=== PATIENT | male | born 1955 | race Caucasian/White ===

== ENCOUNTER → 2023-12-19 09:37 | Outpatient (REF) | payer MEDICARE, OTHER, SELFPAY | LOC: RAD 09:37 | PROVIDERS: ATTENDING PHYSICIAN Nurse Practitioner Family; FAMILY PHYSICIAN Internal Medicine | DX: M25.511 Pain in right shoulder (principal) | CPT/HCPCS: 73030 ==

== ENCOUNTER → 2024-02-07 06:36 | Outpatient (REF) | payer MEDICARE, OTHER, SELFPAY | LOC: MRI 3T 06:36 | PROVIDERS: ATTENDING PHYSICIAN Internal Medicine | DX: M25.511 Pain in right shoulder (principal) | CPT/HCPCS: 73221 ==

== ENCOUNTER → 2024-03-14 08:57 | Outpatient (REF) | payer MEDICARE, OTHER, SELFPAY ==
[2024-03-14 09:38] LABS: % Basophils 0.7 % (0-2); % Eosinophils 1.7 % (0-6); % Immature Granulocytes 0.2 % (0-0.5); % Lymphocytes 32.7 % (20.5-51.1); % Neutrophils 50.7 % (42.2-75.2); Absolute Eosinophils 0.1 10^3/uL (0-0.7); Absolute Lymphocytes 1.8 10^3/uL (1.2-3.4); Absolute Monocytes 0.8 10^3/uL (0.1-0.6); Absolute Neutrophils 2.7 10^3/uL (1.4-6.5); Hematocrit 42.1 % (39.0-52.0); Hemoglobin 14.5 g/dL (13.0-18.0); Mean Corp Hgb Conc. 34.4 g/dL (33.0-37.0); Mean Corpuscular Hgb 30.4 pg (27.0-31.0); Mean Corpuscular Volume 88.3 fL (80.0-94.0); Mean Platelet Volume 9.5 fL (7.4-10.4); Nucleated Red Blood Cells % 0 % (-); Platelet Count 179 10^3/uL (130-400); Red Blood Cell Count 4.77 10^6/uL (4.70-6.10); Red Cell Dist. Width 13.2 % (11.5-14.5); White Blood Cell Count 5.4 10^3/uL (4.8-10.8)
[2024-03-14 09:50] LABS: Urine Albumin Negative (Neg - Trace); Urine Bilirubin Negative (Negative); Urine Character Clear (Clear); Urine Color Yellow; Urine Glucose Negative (Negative); Urine Ketone Negative (Negative); Urine Leukocyte Negative (Negative); Urine Nitrite Negative (Negative); Urine Occult Blood 1+ (Negative); Urine Specific Gravity 1.025 (<1.030); Urine Urobilinogen Negative (Neg - 1+)
[2024-03-14 10:29] LABS: Blood Urea Nitrogen 20 mg/dl (9-20); Glucose 96 mg/dl (70-99)
[2024-03-14 10:30] LABS: ALT (SGPT) 19 U/L (0-50); AST (SGOT) 27 U/L (17-59); Alkaline Phosphatase 55 U/L (38-126); Carbon Dioxide 30 mmol/L (22-30); Chloride 101 mmol/L (98-107); HDL Cholesterol 49 mg/dl; LDL Cholesterol, Calculated 58 mg/dl; Potassium 4.2 mmol/L (3.5-5.1); Sodium 141 mmol/L (135-145); Total Bilirubin 0.4 mg/dl (0.2-1.3); Total Cholesterol 126 mg/dl (50-199); Triglyceride 95 mg/dl (10-149); Very Low Density Lipoprotein 19 mg/dl (0-30); eGFR > 60.00
[2024-03-14 10:39] LABS: Urine Mucus Few
[2024-03-14 10:40] LABS: Urine Amorphous Seen; Urine White Cell 0-2 /HPF (0-5)
[2024-03-14 10:56] LABS: PSA, Total - Screen 0.87 ng/ml (0.0-4.0)
== END ==
LOC: REG 08:57
PROVIDERS: ATTENDING PHYSICIAN Internal Medicine
DX: Z00.00 Encounter for general adult medical examination without abnormal findings (principal); Z79.899 Other long term (current) drug therapy; R82.90 Unspecified abnormal findings in urine; E78.2 Mixed hyperlipidemia; R79.89 Other specified abnormal findings of blood chemistry; Z12.5 Encounter for screening for malignant neoplasm of prostate; I10 Essential (primary) hypertension; D72.821 Monocytosis (symptomatic)
CPT/HCPCS: 36415; 80053; 80061; 81003; 81015; 82306; 85025; G0103

== ENCOUNTER → 2024-04-03 12:38 | Outpatient (REF) | payer MEDICARE, OTHER, SELFPAY ==
--- NOTE | 2024-04-03 13:52 | CARDSERVDEF ---
Echocardiogram with Definity completed after protocol screening completed. Allergies verified.
here for definity enhanced stress echo
Patent IV site: new start 22P RAC
IV site flushed with 0.9% NaCl pre and post administration.
Diluted bolus method utilized to enhance visualization of ventricular bridges.
Total volume given: __5.0__ ml in divided doses
Patient tolerated all procedures well without complications.
site removed at completion of test.
== END ==
LOC: RCS 12:38
PROVIDERS: ATTENDING PHYSICIAN Internal Medicine
DX: R06.09 Other forms of dyspnea (principal); R07.2 Precordial pain
CPT/HCPCS: 93017; 93005; 93350; Q9957

== ENCOUNTER → 2024-05-15 07:25 | Outpatient (REF) | payer MEDICARE, OTHER, SELFPAY ==
[2024-05-15 08:47] LABS: Hematocrit 42.1 % (39.0-52.0); Hemoglobin 14.2 g/dL (13.0-18.0); Mean Corp Hgb Conc. 33.7 g/dL (33.0-37.0); Mean Corpuscular Hgb 30.3 pg (27.0-31.0); Mean Corpuscular Volume 89.8 fL (80.0-94.0); Platelet Count 187 10^3/uL (130-400); Red Blood Cell Count 4.69 10^6/uL (4.70-6.10); Red Cell Dist. Width 12.7 % (11.5-14.5); White Blood Cell Count 4.6 10^3/uL (4.8-10.8)
[2024-05-15 10:36] LABS: Blood Urea Nitrogen 18 mg/dl (9-20); Calcium 8.8 mg/dl (8.4-10.2); Carbon Dioxide 30 mmol/L (22-30); Chloride 103 mmol/L (98-107); Glucose 93 mg/dl (70-99); Potassium 4.2 mmol/L (3.5-5.1); Sodium 141 mmol/L (135-145); eGFR > 60.00
== END ==
LOC: SDSPAT 07:25
PROVIDERS: ATTENDING PHYSICIAN Specialist; FAMILY PHYSICIAN Internal Medicine
DX: Z01.818 Encounter for other preprocedural examination (principal)
CPT/HCPCS: 36415; 80048; 85027

== ENCOUNTER 2024-06-05 06:20 | Day surgery (SDC) | payer MEDICARE, OTHER, SELFPAY ==
[2024-05-15 13:40] VITALS: BMI 33.9
[2024-06-05] VITALS (9 sets, daily range): BP systolic 116–156; BP diastolic 54–86; BMI 33.9
[2024-06-05] MEDS: TYLENOL 1000 MG PO (09:48)
[2024-06-05] MEDS: NORMOSOL-R/PLASMALYTE-A 1000 IV (09:49)
== END 2024-06-05 14:37 | disposition home or self-care (01) ==
LOC: SDS 06:20
PROVIDERS: ATTENDING PHYSICIAN Specialist; FAMILY PHYSICIAN Internal Medicine
DX: M75.111 Incomplete rotator cuff tear or rupture of right shoulder, not specified as traumatic (principal); M19.011 Primary osteoarthritis, right shoulder
CPT/HCPCS: 29827; 29828; 29824

== ENCOUNTER → 2025-03-01 08:42 | Outpatient (REF) | payer MEDICARE, OTHER, SELFPAY ==
[2025-03-01 09:51] LABS: Urine Character Clear (Clear)
[2025-03-01 10:10] LABS: Hematocrit 43.8 % (39.0-52.0); Hemoglobin 14.8 g/dL (13.0-18.0); Mean Corp Hgb Conc. 33.8 g/dL (33.0-37.0); Mean Corpuscular Volume 89.2 fL (80.0-94.0); Nucleated Red Blood Cells % 0 % (-); Platelet Count 196 10^3/uL (130-400); Red Cell Dist. Width 12.7 % (11.5-14.5)
[2025-03-01 10:35] LABS: Vitamin D, 25-OH*** 48.4 ng/mL (30-80)
[2025-03-01 10:38] LABS: ALT (SGPT) 17 U/L (0-50); AST (SGOT) 22 U/L (17-59); Albumin 4.3 g/dl (3.5-5.0); Alkaline Phosphatase 66 U/L (38-126); Blood Urea Nitrogen 19 mg/dl (9-20); Calcium 9.2 mg/dl (8.4-10.2); Carbon Dioxide 30 mmol/L (22-30); Chloride 103 mmol/L (98-107); Glucose 90 mg/dl (70-99); HDL Cholesterol 49 mg/dl; LDL Cholesterol, Calculated 58 mg/dl; Potassium 4.2 mmol/L (3.5-5.1); Sodium 137 mmol/L (135-145); Total Protein 6.5 g/dl (6.3-8.2); Very Low Density Lipoprotein 16 mg/dl (0-30); eGFR > 60.00
[2025-03-01 10:49] LABS: PSA, Total - Screen 1.12 ng/ml (0.0-4.0)
[2025-03-01 11:21] LABS: Urine White Cell 0-2 /HPF (0-5)
== END ==
LOC: REG 08:42
PROVIDERS: ATTENDING PHYSICIAN Internal Medicine
DX: I10 Essential (primary) hypertension (principal); E78.2 Mixed hyperlipidemia; Z12.5 Encounter for screening for malignant neoplasm of prostate; Z79.899 Other long term (current) drug therapy
CPT/HCPCS: 36415; 80053; 80061; 81003; 81015; 82306; 85025; G0103